=== PATIENT | male | born 1935 | race Caucasian/White ===

== ENCOUNTER 2019-09-14 13:20 | Outpatient (CLI) | payer MEDICARE, OTHER | END 2019-09-14 13:21 | disposition home or self-care (01) | LOC: CP 13:20 | PROVIDERS: ATTEND Internal Medicine Cardiovascular Disease | DX: R06.02 Shortness of breath (principal) | CPT/HCPCS: 94060; 94727; 94729 ==

== ENCOUNTER 2019-12-07 08:57 | Outpatient (CLI) | payer MEDICARE, OTHER ==
--- NOTE | 2019-12-07 09:14 | RAD ---
XR Chest Pa Lat @ [facility] HISTORY: Dyspnea COMPARISON: None FINDINGS: The heart size is normal. There are changes of median sternotomy. The aorta is tortuous. Th ere is minimal scarring at the left lung base. The lungs are well expanded without focal areas of consolidation, pneumothorax or pleural effusions. There are degenerative changes in the spine. IMPRESSION: No radiographic evidence of acute cardiopulmonary process.
== END 2019-12-07 08:58 | disposition home or self-care (01) ==
LOC: RAD 08:57
PROVIDERS: ATTEND Internal Medicine Critical Care Medicine
DX: R06.00 Dyspnea, unspecified (principal)
CPT/HCPCS: 71046